=== PATIENT | female | born 1960 ===

== ENCOUNTER 2019-05-13 12:06 | Emergency (ER) | payer OTHER ==
[~2019-05-13] VITALS: Ht 157.5 cm; Wt 67.1 kg
[2019-05-13] MEDS ORDERED: COZAAR25 MG (12:23)
[2019-05-13] MEDS ORDERED: LIPITOR40 MG (12:23)
[2019-05-13] MEDS ORDERED: VITAMIN D2000 UNI1 (12:24)
== END 2019-05-13 15:11 | disposition home or self-care (01) ==
LOC: ER 12:06
DX: J11.1 Influenza due to unidentified influenza virus with other respiratory manifestations (principal)